=== PATIENT | female | born 1990 | race Caucasian/White ===

== ENCOUNTER 2018-08-07 17:20 | Emergency (ER) | payer OTHER ==
--- NOTE | 2018-08-07 19:21 | RAD ---
Indication: Syncopal episode on Tuesday. Struck head on floor. Persistent dizziness. Comparison: No relevant prior exams available on the [facility] [place] PACS for comparison. Technique: Noncontrast CT vertex of skull through foramen magnum. Report: The sulci, ventricles, and basal cisterns are normal for age. Wright matter white matter differentiation is preserved without evidence for edema. No intra or extra axial hemorrhage, mass, or fluid collection detected. Unremarkable visualized orbital contents. Unremarkable calvarium and skull base. Unremarkable scalp. The visualized paranasal sinuses and mastoid air spaces are clear. IMPRESSION: #. Negative unenhanced head CT.
--- NOTE | 2018-08-07 20:41 | ED ---
Head Injury - HPI Summary HPI Summary: A 28 y/o female presents to the ED c/o a head injury on 08/05/18 where she experienced LOC at a concert in a warm, dark, crowded room. She claims that she was drinking but not intoxicated. She hit her head on a metal door frame when walking. She states that her vision came back after sitting down in a chair and drinking water. She describes her pain as a throbbing pain. She admits to feeling dizzy, slow, confused a head ache and nauseous. She denies vomiting or diarrhea. She stopped exercising by running because of her symptoms. - History Of Current Complaint Chief Complaint: EDHeadInjury Stated Complaint: HEAD INJURY/HEADACHE Hx Obtained From: Patient Mechanism Of Injury: Fall From A Standing Position Onset/Duration: Started Days Ago Onset of Pain: Immediate Severity Currently: Severe Severity Initially: Severe Pain Intensity: 10 Pain Scale Used: 0-10 Numeric Associated Signs And Symptoms: Confusion, Nausea, Headache - Allergies/Home Medications Allergies/Adverse Reactions: Allergies Allergy/AdvReac Type Severity Reaction Status Date / Time amoxicillin Allergy Hives Verified 08/07/18 17:30 PMH/Surg Hx/FS Hx/Imm Hx Sensory History: Denies: Hx Deafness Opthamlomology History: Denies: Hx Vision Problem Infectious Disease History: No Infectious Disease History: Denies: Traveled Outside the [place] in Last 30 Days - Family History Known Family History: Negative: Blood Disorder - Social History 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 Negative: Vomiting, Diarrhea Positive: Headache, Syncope Psychological: Other - Positive: confusion All Other Systems Reviewed And Are Negative: Yes Physical Exam - Summary Physical Exam Summary: Appearance: Well-appearing, Well-nourished, lying in bed comfortably Skin: Warm, dry, no obvious rash Eyes: sclera anicteric, no conjunctival pallor ENT: mucous membranes moist, pharynx appears normal Neck: Supple, nontender Respiratory: Clear to auscultation, no signs of respiratory distress Cardiovascular: Normal S1, S2. No murmurs. Normal distal pulses in tibial and radial bilaterally. Abdomen: Soft, nontender, normal active bowel sounds present Musculoskeletal: Normal, Strength/ROM Intact Neurological: A&Ox3, awake and alert, mentation is normal, speech is fluent and appropriate Psychiatric: affect is normal, does not appear anxious or depressed GCS: 15 Triage Information Reviewed: Yes Vital Signs On Initial Exam: Initial Vitals Temp Pulse Resp BP Pulse Ox 98.7 F 63 17 129/87 99 08/07/18 17:25 08/07/18 17:25 08/07/18 17:25 08/07/18 17:25 08/07/18 17:25 Vital Signs Reviewed: Yes Diagnostics - Vital Signs Vital Signs Temp Pulse Resp BP Pulse Ox 08/07/18 17:25 98.7 F 63 17 129/87 99 - Laboratory Lab Statement: Any lab studies that have been ordered have been reviewed, and results considered in the medical decision making process. - CT Head CT Interpretation Completed By: Radiologist - Negative unenhanced head CT. This report has been reviewed by the ED physician. Head Injury Course/Dx Course Of Treatment: A 28 y/o female presents to the ED c/o a head injury on where she experienced LOC at a concert in a warm, dark, crowded room. She claims that she was drinking but not intoxicated. She hit her head on a metal door frame when walking. She states that her vision came back after sitting down in a chair and drinking water. She describes her pain as a throbbing pain. She admits to feeling dizzy, slow, confused a head ache and nauseous. She denies vomiting or diarrhea. She stopped exercising by running because of her symptoms. Her brain CT displayed: Negative unenhanced head CT. This report has been reviewed by the ED physician. She has a final dx of a concussion and will be discharged. The patient is agreeable with this plan. Discharge - Sign-Out/Discharge Documenting (check all that apply): Patient Departure - DC - Discharge Plan Condition: Good Disposition: HOME Prescriptions: Ondansetron [Zofran Odt] 8 mg PO TID PRN #12 tab PRN Reason: Nausea Patient Education Materials: Concussion (ED) Referrals: Meg Cervantes MD [Primary Care Provider] - 1 Week (if not improving) - Attestation Statements Document Initiated by Scribe: Yes Documenting Scribe: Luis Hernandez Provider For Whom Scribe is Documenting (Include Credential): Rob Newby MD Scribe Attestation: Luis Torres, scribed for Rob Newby MD on 08/08/18 at 0129.
[2018-08-07 20:59] VITALS: BP 123/74
== END 2018-08-07 20:48 | disposition home or self-care (01) ==
LOC: ED 17:20
DX: S06.0X1A Concussion with loss of consciousness of 30 minutes or less, initial encounter (principal); R11.0 Nausea; R51 Headache; R55 Syncope and collapse; W18.00XA Striking against unspecified object with subsequent fall, initial encounter; Y92.9 Unspecified place or not applicable; Y99.9 Unspecified external cause status
CPT/HCPCS: 70450; 99282

== ENCOUNTER 2019-08-03 14:43 | Emergency (ER) | payer OTHER ==
[2019-08-03 15:42] LABS: ABS Basophils 0.1 10^3/ul (0-0.2); ABS Eosinophils 0.1 10^3/ul (0-0.6); ABS Lymphocytes 1.7 10^3/ul (1.0-4.8); ABS Monocytes 0.5 10^3/ul (0-0.8); ABS Neutrophils 4.8 10^3/ul (1.5-7.7); Eosinophil % 0.9 %; Hematocrit 39 % (35-47); Hemoglobin 13.8 g/dL (12.0-16.0); Lymphocyte % 23.6 %; Mean Corpuscular HGB Conc 35 g/dL (31-36); Mean Corpuscular Hemoglobin 32 pg (27-31); Mean Corpuscular Volume 92 fL (80-97); Mean Platelet Volume 7.5 fL (7.4-10.4); Nucleated Red Blood Cells % 0.1; Platelet Count 274 10^3/uL (150-450); Red Blood Count 4.29 10^6 /uL (3.70-4.87); Red Cell Distribution Width 13 % (10-15); White Blood Count 7.1 10^3/uL (3.5-10.8)
[2019-08-03 16:07] LABS: Albumin 4.4 g/dL (3.2-5.2); Albumin/Globulin Ratio 1.6 (1-3); BUN/Creatinine Ratio 17.4 (8-20); Calcium 9.5 mg/dL (8.6-10.3); EGFR African American 122.6 (>60); EGFR Non-African American 101.3 (>60); Globulin 2.7 g/dL (2-4); Potassium 3.9 mmol/L (3.5-5.0); Total Bilirubin 0.5 mg/dL (0.2-1.0); Total Protein 7.1 g/dL (6.4-8.9)
[2019-08-03] MEDS ORDERED: Ketorolac *IM* INJ* 60 MG/2 ML VIAL IM ONE (17:30)
[2019-08-03] MEDS ORDERED: HYDROcodone/ACETAMIN 5-325 MG* 1 TAB PO ONE (17:30)
--- NOTE | 2019-08-03 17:34 | ED ---
HPI Chest Pain - HPI Summary HPI Summary: The patient is a 29 y/o F presenting to [facility] with a chief complaint of sudden onset right rib pain onset four days ago which resolved but returned last night at 1800 and has been constant since. She reports that about two weeks ago, she had flu-like symptoms that mostly resolved except for a cough that has persisted. This past week, she had mild pain in the right lower ribs and thought she had pulled a muscle so she rested with relief. Last night, however, the pain returned and worsened. The sharp, stabbing pain is aggravated by coughing, sneezing, and lifting her arms, and it is alleviated mildly by rest. Currently, the pain is rated 10/10 in severity. No PMHx. No surgeries. Nonsmoker , occasional EtOH, no substance use. Medications reviewed. Allergies noted. - History of Current Complaint Chief Complaint: EDChestWallPain Time Seen by Provider: 08/03/19 17:24 Hx Obtained From: Patient Onset/Duration: Started Days Ago - four, Still Present, Worse Since - last night Time of Onset: 18:00 - yesterday Timing: Constant, Lasting Hours Initial Severity: Moderate Current Severity: Severe Pain Intensity: 10 Pain Scale Used: 0-10 Numeric Chest Pain Location: Right Lateral Chest Pain Radiates: No Character: Sharp/Stabbing Aggravating Factor(s): Movement - lifting arms, Other: - coughing, sneezing Alleviating Factor(s): Rest - mildly Associated Signs and Symptoms: Positive: Cough - Allergy/Home Medications Allergies/Adverse Reactions: Allergies Allergy/AdvReac Type Severity Reaction Status Date / Time amoxicillin Allergy Hives Verified 08/07/18 17:30 PMH/Surg Hx/FS Hx/Imm Hx Endocrine/Hematology History: Denies: Hx Diabetes Cardiovascular History: Denies: Hx Hypercholesterolemia, Hx Hypertension Sensory History: Denies: Hx Vision Problem, Hx Deafness Opthamlomology History: Denies: Hx Vision Problem - Surgical History Surgical History: None Surgery Procedure, Year, and Place: none Infectious Disease History: No Infectious Disease History: Denies: Traveled Outside the [place] in Last 30 Days - Family History Known Family History: Negative: Cardiac Disease, Hypertension, Diabetes, Blood Disorder - Social History Alcohol Use: Occasionally Hx Substance Use: No Substance Use Type: Reports: None Hx Tobacco Use: No Smoking Status (MU): Never Smoked Tobacco Review of Systems Positive: Chest Pain - right rib pain Positive: Cough All Other Systems Reviewed And Are Negative: Yes Physical Exam - Summary Physical Exam Summary: VITAL SIGNS: Reviewed. GENERAL: Patient is a well-developed and nourished female who is lying comfortable in the stretcher. Patient is not in any acute respiratory distress. HEAD AND FACE: No signs of trauma. No ecchymosis, hematomas or skull depressions. No sinus tenderness. EYES: PERRLA, EOMI x 2, No injected conjunctiva, no nystagmus. EARS: Hearing grossly intact. Ear canals and tympanic membranes are within normal limits. MOUTH: Oropharynx within normal limits. NECK: Supple, trachea is midline, no adenopathy, no JVD, no carotid bruit, no c- spine tenderness, neck with full ROM. CHEST: Symmetric, tenderness to palpation pinpointed at the 9th and 10th ribs in the mid-axillary line. LUNGS: Clear to auscultation bilaterally. No wheezing or crackles. CVS: Regular rate and rhythm, S1 and S2 present, no murmurs or gallops appreciated. ABDOMEN: Soft, non-tender. No signs of distention. No rebound, no guarding, and no masses palpated. Bowel sounds are normal. EXTREMITIES: FROM in all major joints, no edema, no cyanosis or clubbing. NEURO: Alert and oriented x 3. No acute neurological deficits. Speech is normal and follows commands. SKIN: Dry and warm. Triage Information Reviewed: Yes Vital Signs On Initial Exam: Initial Vitals Temp Pulse Resp BP Pulse Ox 98.6 F 64 14 131/86 98 08/03/19 14:47 08/03/19 14:47 08/03/19 14:47 08/03/19 14:47 08/03/19 14:47 Vital Signs Reviewed: Yes Procedures - Sedation Patient Received Moderate/Deep Sedation with Procedure: No Diagnostics - Vital Signs Vital Signs Temp Pulse Resp BP Pulse Ox 08/03/19 14:47 98.6 F 64 14 131/86 98 - Laboratory Lab Results: Lab Results 08/03/19 08/03/19 08/03/19 Range/Units 15:28 15:28 15:28 WBC 7.1 (3.5-10.8) 10^3/uL RBC 4.29 (3.70-4.87) 10^6 /uL Hgb 13.8 (12.0-16.0) g/dL Hct 39 (35-47) % MCV 92 (80-97) fL MCH 32 H (27-31) pg MCHC 35 (31-36) g/dL RDW 13 (10-15) % Plt Count 274 (150-450) 10^3/uL MPV 7.5 (7.4-10.4) fL Neut % (Auto) 68.1 % Lymph % (Auto) 23.6 % Dukes % (Auto) 6.7 % Eos % (Auto) 0.9 % Baso % (Auto) 0.7 % Absolute Neuts (auto) 4.8 (1.5-7.7) 10^3/ul Absolute Lymphs (auto) 1.7 (1.0-4.8) 10^3/ul Absolute Monos (auto) 0.5 (0-0.8) 10^3/ul Absolute Eos (auto) 0.1 (0-0.6) 10^3/ul Absolute Basos (auto) 0.1 (0-0.2) 10^3/ul Absolute Nucleated RBC 0.0 10^3/ul Nucleated RBC % 0.1 INR (Anticoag Therapy) 1.00 (0.82-1.09) Sodium 138 (135-145) mmol/L Potassium 3.9 (3.5-5.0) mmol/L Chloride 105 (101-111) mmol/L Carbon Dioxide 27 (22-32) mmol/L Anion Gap 6 (2-11) mmol/L BUN 12 (6-24) mg/dL Creatinine 0.69 (0.51-0.95) mg/dL Est GFR ( Amer) 122.6 (>60) Est GFR (Non-Af Amer) 101.3 (>60) BUN/Creatinine Ratio 17.4 (8-20) Glucose 85 (70-100) mg/dL Calcium 9.5 (8.6-10.3) mg/dL Total Bilirubin 0.50 (0.2-1.0) mg/dL AST 21 (13-39) U/L ALT 12 (7-52) U/L Alkaline Phosphatase 49 (34-104) U/L Troponin I 0.00 (<0.04) ng/mL Total Protein 7.1 (6.4-8.9) g/dL Albumin 4.4 (3.2-5.2) g/dL Globulin 2.7 (2-4) g/dL Albumin/Globulin Ratio 1.6 (1-3) Result Diagrams: 08/03/19 15:28 08/03/19 15:28 Lab Statement: Any lab studies that have been ordered have been reviewed, and results considered in the medical decision making process. - Radiology Chest X-Ray Radiology Interpretation Completed By: Radiologist Summary of Radiographic Findings: Impression: 1. Normal chest x-ray. 2. No radiographically apparent right rib fractures or other acute bony abnormality. ED physician has reviewed this report. Right Ribs X-Ray Radiology Interpretation Completed By: Radiologist Summary of Radiographic Findings: Impression: 1. Normal chest x-ray. 2. No radiographically apparent right rib fractures or other acute bony abnormality. ED physician has reviewed this report. - EKG 1445 Cardiac Rate: Bradycardia - 58 BPM EKG Rhythm: Sinus Bradycardia Summary of EKG Findings: EKG at 1445 reveals sinus bradycardia at [address] elevations. ED physician has reviewed and interpreted this EKG. Re-Evaluation - Re-Evaluation First Eval Re-Evaluation Time: 18:25 Change: Improved Comment: Her pain has improved with medications. We discussed all results and plan for discharge home. Chest Pain Course/Dx - Course Assessment/Plan: Patient is a 29 y/o F with a chief complaint of sudden onset lower right rib pain onset four days ago which resolved but then returned and worsened last night at 1800. She additionally complains of a cough that began two weeks ago after having flu-like symptoms. Blood work without any significant abnormality. Troponin 0.00. EKG: Normal sinus rhythm without any ST elevation. CXR and rib cage x-ray IMPRESSION: 1. Normal chest x-ray. 2. No radiographically apparent right rib fractures or other acute bony abnormality. In the physical exam, the patient has a pinpoint tenderness along the ninth and 10th ribs mid axillary line. Patient denies any history of trauma. However, she thinks that she may have pulled a muscle. In the ED course, the patient was given Toradol and [place], and the symptoms have improved. Patient is not tachycardic, is not hypoxic, and the wells criteria for PE is 0. Therefore I have no suspicion for PE. I discussed all the findings and test results with the patient. Patient was instructed to return to the emergency room immediately if any of the symptoms return or worsen. Plan of care was discussed with the patient and understands and agrees. All questions were answered at patient satisfaction. There were no further complaints or concerns. Lung exam before discharge: CTA B/L. Good air exchange. No wheezing or crackles heard. CVS: S1 and S2 present. No murmurs appreciated. Patient is alert and oriented x 3. Patient is hemodynamically stable. 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 - Diagnoses Provider Diagnoses: Atypical chest pain Discharge ED - Sign-Out/Discharge Documenting (check all that apply): Patient Departure - Patient will be discharged home. - Discharge Plan Condition: Stable Disposition: HOME Prescriptions: HYDROcodone/ACETAMIN 5-325 MG* [[place] 5-325 TAB*] 1 tab PO Q8H PRN #10 tab MDD 3 PRN Reason: Pain - Severe Ibuprofen TAB* [Motrin TAB* 600 MG] 600 mg PO Q8H PRN #30 tab PRN Reason: Pain - Moderate Patient Education Materials: Chest Pain (DC) Referrals: Meg Cervantes MD [Primary Care Provider] - 3 Days Additional Instructions: Please take medications as prescribed. Follow up with your primary care provider in 2-3 days. Return to the emergency department for any new or worsening symptoms. - Billing Disposition and Condition Condition: STABLE Disposition: Home - Attestation Statements Document Initiated by Bertin: Yes Documenting Scribe: Danyell Hadley Provider For Whom Bertin is Documenting (Include Credential): Dr. Juan Giraldo MD Scribe Attestation: Danyell Torres scribed for Dr. Juan Giraldo MD on 08/03/19 at 1901. Scribe Documentation Reviewed: Yes Provider Attestation: The documentation as recorded by the Danyell stokes accurately reflects the service I personally performed and the decisions made by me, Dr. Juan Giraldo MD Status of Scribe Document: Viewed
[2019-08-03 19:03] VITALS: BP 130/70
== END 2019-08-03 19:00 | disposition home or self-care (01) ==
LOC: ED 14:43
DX: R07.89 Other chest pain (principal); Z88.0 Allergy status to penicillin
CPT/HCPCS: 36415; 71046; 80053; 84484; 85025; 85610; 93005; 96372; 99283; J1885